=== PATIENT | female | born 1965 | race Caucasian/White ===

== ENCOUNTER 2019-12-23 14:43 | Outpatient (CLI) | payer OTHER, SELFPAY ==
--- NOTE | ~2019-12-23 | CT_ITS ---
EXAMINATION: CTA brain DATE: 12/23/2019 15:28 INDICATION: Headache. TECHNIQUE: Computed tomographic angiography (CTA) of the head was performed without and with 100 mL O mnipaque-350 intravenous contrast. Automated exposure control and iterative reconstruction technique were employed. The dose-length product was 1029.05 mGy-cm. Maximum intensity projection 3D reconstru ctions were created. Volume-rendered 3D reconstructions of the intracranial arteries were created by the technologist on a separate workstation. 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 There is a s mall area of chronic encephalomalacia in anterior left temporal lobe. There is no intracranial hemorr michael, acute infarction, or abnormal intracranial mass lesion. The ventricles are normal in size. Ther e is mild mucosal thickening in the ethmoid sinuses. The mastoid air cells are normal. There are johnson ges of left-sided craniotomy with involvement of the left frontal sinus and left lateral orbital wall . There is plate and screw fixation of left lateral orbital wall. The mastoid air cells are normal. T he vertebral arteries are codominant. There is no significant stenosis of basilar artery or the poste rior cerebral arteries. The posterior communicating arteries are normal. There is no significant sten osis of the intracranial internal carotid arteries or anterior or middle cerebral arteries. Anterior communicating artery is normal. There is no aneurysm. IMPRESSION: 1. Small area of chronic encephalomalacia in anterior left temporal lobe. Reviewed, dictated and finalized at location A. NDER CHECKER
[2019-12-23 15:11] LABS: Estimated Glomerular Filt Rate 52
== END 2019-12-23 14:44 | disposition home or self-care (01) ==
LOC: ANHIMG 14:53
PROVIDERS: PCP Family Medicine; Visit Provider Psychiatry & Neurology Neurology
DX: R51 Headache (principal)
CPT/HCPCS: 36415; 70496; Q9967